=== PATIENT | female | born 1995 | race Caucasian/White ===

== ENCOUNTER 2019-08-29 02:10 | Emergency (ER) | payer MEDICAID, OTHER ==
[~2019-08-29] VITALS: Ht 165.1 cm; Wt 108.9 kg
[2019-08-29 02:34] VITALS: BP 144/101
[2019-08-29 03:52] LABS: Urine Bacteria MOD /hpf (None Seen); Urine Blood 3+ /uL (Negative); Urine Mucus FEW (None Seen); Urine Specific Gravity 1.016 (1.001-1.035); Urine WBC 140 /hpf (0 - 5); Urine WBC Clumps PRESENT /hpf (None Seen)
== END 2019-08-29 04:18 | disposition home or self-care (01) ==
LOC: ER 02:10
DX: O23.42 Unspecified infection of urinary tract in pregnancy, second trimester (principal); Z3A.15 15 weeks gestation of pregnancy
CPT/HCPCS: 81001